=== PATIENT | male | born 1935 | race Caucasian/White ===

== ENCOUNTER 2017-10-09 09:37 | Emergency (ER) | payer MEDICARE ==
[2017-10-09 11:24] VITALS: BP 136/62
--- NOTE | 2017-10-09 12:07 | UC ---
Respiratory Complaint HPI - HPI Summary HPI Summary: 82 y/o male presents to the urgent care c/o nasal congestion w/ clear nasal discharge, +PND, dry cough, body aches and chill for the past 2 days. Unaware of fever. He has 3 episodes of diarrhea first day which resolved yesterday after taking Imodium PO. He feels a lot of pressure in both ears.Pt denies SOB, dizziness wheezing, chest pain, abdominal pain, N/V/D. Pt is eating well and drinking plenty of fluids - History of Current Complaint Chief Complaint: UCRespiratory Stated Complaint: CHEST CONGESTION/COUGH Time Seen by Provider: 10/09/17 11:46 Hx Obtained From: Patient Onset/Duration: Gradual Onset, Lasting Days - 2 days, Still Present Timing: Constant Severity Initially: Mild Severity Currently: Moderate Pain Intensity: 5 Pain Scale Used: 0-10 Numeric Character: Cough: Nonproductive Aggravating Factors: Recumbent Position Alleviating Factors: OTC Meds Associated Signs And Symptoms: Positive: Chills, URI, Nasal Congestion, Sinus Discomfort - Risk Factors Pulmonary Embolism Risk Factors: Negative Cardiac Risk Factors: Hypertension Pseudomonas Risk Factors: Negative Tuberculosis Risk Factors: Negative - Allergies/Home Medications Allergies/Adverse Reactions: Allergies Allergy/AdvReac Type Severity Reaction Status Date / Time MS Lisinopril [Lisinopril] Allergy Swelling Verified 10/09/17 11:24 Of Face,Lips,& Throat PMH/Surg Hx/FS Hx/Imm Hx Previously Healthy: Yes Cardiovascular History: Hypertension - Surgical History Surgical History: Yes Surgery Procedure, Year, and Place: achilles repair - Family History Known Family History: Positive: Unknown - Pt is adopted - Social History Occupation: Retired Lives: With Family Alcohol Use: Occasionally Substance Use Type: None Smoking Status (MU): Never Smoked Tobacco - Immunization History Most Recent Influenza Vaccination: Fall 2014 Most Recent Pneumonia Vaccination: has had Review of Systems Constitutional: Chills, Fatigue, Other - body aches Skin: Negative Eyes: Negative ENT: Sore Throat, Ear Ache - B/L ear pressure, Nasal Discharge, Sinus Congestion Respiratory: Cough - dry Cardiovascular: Negative Gastrointestinal: Negative, Diarrhea - 2 days ago with 3 episodes. Resolved today Genitourinary: Negative Motor: Negative Neurovascular: Negative Musculoskeletal: Negative Neurological: Negative Psychological: Negative Is Patient Immunocompromised?: No All Other Systems Reviewed And Are Negative: Yes Physical Exam Triage Information Reviewed: Yes Vital Signs: Initial Vital Signs Temp 99.1 F 10/09/17 11:20 Pulse 82 10/09/17 11:20 Resp 16 10/09/17 11:20 BP 136/62 10/09/17 11:20 Pulse Ox 97 10/09/17 11:20 - Additional Comments VITAL SIGNS: Reviewed. GENERAL: Patient is a well developed and nourished male who is sitting comfortable in the examining table. Patient is not in any acute respiratory distress. HEAD AND FACE: No signs of trauma. No ecchymosis, hematomas or skull depressions. No sinus tenderness. edematous erythematous nasal mucosa with yellowish discharge, EYES: PERRLA, EOMI x 2, No injected conjunctiva, clear watery eyes, no nystagmus. No photophobia. EARS: Hearing grossly intact. B/L Ear canals impacted w/ cerum unable to visualize TM. MOUTH: Positive pharynx with erythema, no exudates,no palatal petechiae. no B/L tonsillar enlargement Uvula in midline. NECK: Supple, trachea is midline, Positive anterior cervical lymphadenopathy, no JVD, no carotid bruit, no c-spine tenderness, neck with full ROM. No meningeal signs, no Kernig's or brudzinskis signs. CHEST: Symmetric, no tenderness at palpation LUNGS: Clear to auscultation bilaterally. No wheezing or crackles. CVS: Regular rate and rhythm, S1 and S2 present, no murmurs or gallops appreciated. ABDOMEN: Soft, non-tender. No signs of distention. No rebound no guarding, and no masses palpated. Bowel sounds are normal. EXTREMITIES: FROM in all major joints, no edema, no cyanosis or clubbing. NEURO: Alert and oriented x 3. No acute neurological deficits. Speech is normal and follows commands. SKIN: Dry and warm UC Diagnostic Evaluation - Laboratory O2 Sat by Pulse Oximetry: 97 Respiratory Course/Dx - Course Course Of Treatment: 82 y/o male presents to the urgent care c/o nasal congestion w/ clear nasal discharge, +PND, dry cough, body aches and chill for the past 2 days. Unaware of fever. He has 3 episodes of diarrhea first day which resolved yesterday after taking Imodium PO. He feels a lot of pressure in both ears.Pt denies SOB,dizziness, wheezing, chest pain, abdominal pain, N/V/ D. Pt is eating well and drinking plenty of fluids. Hx obtained. Pt with URI and B/L ear impacted w/ cerumen on examination. Most likely Influenza. However at this moment shortage of influenza test. Pt Rx Tamiflu and tylenol PO to alleviates symptoms. Ear irrigation ordered. Performed by nurse. Pt's B/L ear canals completely clear. Pt felt better. Advised on hand washing and wear a mask to avoid spreading. Pt advised to rest, increase fluid intake, eat well and avoid strenuous exercise. If symptoms do not improve or worsen advised to return to the urgent care or f/u with her PCP for further evaluation and treatment. Pt's BP is elevated today advised to decrease salt in diet, monitor BP and f/u with PCP for further management.Pt understood and agreed with plan of care. - Differential Dx/Diagnosis Differential Diagnosis/HQI/PQRI: Asthma, Bronchitis, Influenza, Lower Resp Infection, Sinusitis, Other - pahryngitis, cerumen impaction. otitis media or externa Provider Diagnoses: 1- B/L external ear canal cerumen Impaction. 2-Influenza Discharge - Discharge Plan Condition: Stable Disposition: HOME Prescriptions: Benzonatate CAP* [Tessalon 100 MG CAP*] 100 mg PO TID PRN #21 cap PRN Reason: Cough Oseltamivir CAP* [Tamiflu CAP*] 75 mg PO BID #10 cap Patient Education Materials: Cerumen Impaction (ED), Influenza (ED) Referrals: [facility] [place] [facility] [place]Outside] - 3 Days Additional Instructions: 1- Please take the full course of the antiviral to avoid resistance. Encourage hand washing and wear a mask to avoid spreading. 2-Please take taking Tylenol PO q6-8hrs prn as instructed after meals to alleviate fever, body aches and sore throat. Increase fluid intake, eat well, rest and avoid strenuous exercise 3-If symptoms do not improve or worsen please return to the urgent care or f/u with your PCP in 2 days for further evaluation and treatment.
== END 2017-10-09 12:54 | disposition home or self-care (01) ==
LOC: UCCORT 09:37
DX: J11.1 Influenza due to unidentified influenza virus with other respiratory manifestations (principal); H61.23 Impacted cerumen, bilateral; I10 Essential (primary) hypertension
CPT/HCPCS: 99213; G0463

== ENCOUNTER 2017-10-13 13:51 | Emergency (ER) | payer MEDICARE ==
[2017-10-13 15:57] VITALS: BP 131/68
--- NOTE | 2017-10-13 16:21 | UC ---
Respiratory Complaint HPI - HPI Summary HPI Summary: 82 y/o male presents to the urgent care for f/u on his influenza symptoms. Pt reports he was Dx w/ influenza on 10/09/2017 and Rx tamiflu PO and Tessalon tabs PO. His symptoms were improving, except for dry cough. Today he has nasal congestion w/ yellowish nasal discharge and B/L ear pressure. He has been coughing so much that his ribs hurt. He took last dose of Tamiflu today. He would like a Rx for the Tessalon tabs. Pt denies fever, SOB, chest pain, abdominal pain, SINGH, dizziness, N/V/D D - History of Current Complaint Chief Complaint: UCRespiratory Stated Complaint: FLU NOT IMPROVING Time Seen by Provider: 10/13/17 16:16 Hx Obtained From: Patient Onset/Duration: Gradual Onset, Lasting Days - 5 days, Still Present, Worse Since - yesterday Timing: Constant Severity Initially: Mild Severity Currently: Moderate Pain Intensity: 7 - from coughing Pain Scale Used: 0-10 Numeric Character: Cough: Nonproductive - dry Aggravating Factors: Recumbent Position Alleviating Factors: OTC Meds, Other - tessalon tabs Associated Signs And Symptoms: Positive: URI, Nasal Congestion, Sinus Discomfort - Risk Factors Pulmonary Embolism Risk Factors: Negative Cardiac Risk Factors: Negative Pseudomonas Risk Factors: Negative Tuberculosis Risk Factors: Negative - Allergies/Home Medications Allergies/Adverse Reactions: Allergies Allergy/AdvReac Type Severity Reaction Status Date / Time MS Lisinopril [Lisinopril] Allergy Swelling Verified 10/13/17 15:57 Of Face,Lips,& Throat PMH/Surg Hx/FS Hx/Imm Hx Previously Healthy: Yes Cardiovascular History: Hypertension - Surgical History Surgical History: Yes Surgery Procedure, Year, and Place: achilles repair - Family History Known Family History: Positive: Unknown - Pt is adopted - Social History Occupation: Retired Lives: With Family Alcohol Use: Occasionally Substance Use Type: None Smoking Status (MU): Never Smoked Tobacco - Immunization History Most Recent Influenza Vaccination: Fall 2014 Most Recent Pneumonia Vaccination: has had Review of Systems Constitutional: Negative Skin: Negative Eyes: Negative ENT: Nasal Discharge, Sinus Congestion, Sinus Pain/Tenderness Respiratory: Cough - dry Cardiovascular: Negative Gastrointestinal: Negative Genitourinary: Negative Motor: Negative Neurovascular: Negative Musculoskeletal: Negative Neurological: Headache Psychological: Negative Is Patient Immunocompromised?: No All Other Systems Reviewed And Are Negative: Yes Physical Exam Triage Information Reviewed: Yes Vital Signs: Initial Vital Signs Temp 98.7 F 10/13/17 15:53 Pulse 72 10/13/17 15:53 Resp 16 10/13/17 15:53 BP 131/68 10/13/17 15:53 Pulse Ox 98 10/13/17 15:53 - Additional Comments Vitals: reviewed General: Well developed, well-nourished male patient with NAD. Head and face: Normocephalic and atraumatic, Positive tenderness over the frontal and maxillary sinuses.. Eyes: PERRLA, EOMI x 2. Normal conjunctiva. No eye discharge. ENT: Ears and TM with normal limits. Nose: with yellowish discharge and erythematous mucosa. Pharynx with milderythema, no exudate. +yellowish PND Neck: Supple, no JVD, no carotid bruits and no lymphadenopathy. Lungs: clear, no rales, no rhonchi, no wheezes. CVS: RRR, S1 and S2 present no murmurs or gallops appreciated. Abdomen: soft nontender with positive bowel sounds. Extremities: no edema noted. Neuro: WNL. Skin: warm and dry UC Diagnostic Evaluation - Laboratory O2 Sat by Pulse Oximetry: 98 Respiratory Course/Dx - Course Course Of Treatment: 82 y/o male presents to the urgent care for f/u on his influenza symptoms. Pt reports he was Dx w/ influenza on 10/09/2017 and Rx tamiflu PO and Tessalon tabs PO. His symptoms were improving, except for dry cough. Today he has nasal congestion w/ yellowish nasal discharge and B/L ear pressure. He has been coughing so much that his ribs hurt. He took last dose of Tamiflu today. He would like a Rx for the Tessalon tabs. Pt denies fever, SOB, chest pain, abdominal pain, SINGH, dizziness, N/V/D. Hx obtained. Pt with 1 week of symptoms getting worse. Now turning into sinusitis. Pt advised to continue w / symptomatic Tx. However, PT Rx Augmentin PO and advised to sarts in 2-3 if not improvement of symptoms. Also Rx flonase nasal spray. Albuterol inhaler and Tessalon PO for cough. Discharge instructions explained to Pt. Advised to Return to the clinic or PCP if symptoms do not improve.Pt understood and agreed with plan of care. - Differential Dx/Diagnosis Differential Diagnosis/HQI/PQRI: Asthma, Bronchitis, Influenza, Lower Resp Infection, Sinusitis Provider Diagnoses: 1- Acute bacterial sinusitis Discharge - Discharge Plan Condition: Stable Disposition: HOME Prescriptions: Albuterol HFA INHALER* [Ventolin HFA Inhaler*] 1 - 2 puff INH Q6H PRN #1 mdi PRN Reason: Cough Amoxicillin/Clavulanate TAB* [Augmentin TAB 875*] 875 mg PO BID #20 tab Benzonatate CAP* [Tessalon 100 MG CAP*] 100 mg PO TID PRN #21 cap PRN Reason: Cough Fluticasone NASAL SPRAY 50MCG* [Flonase NASAL SPRAY 50MCG*] 2 spray BOTH NARES DAILY #1 btl Patient Education Materials: Sinusitis (ED) Referrals: [facility] [place] [facility] [Outside] - 3 Days Non Staff,Doctor [Primary Care Provider] - Additional Instructions: 1- Please increase fluid intake and rest. take full course of antibiotic to avoid resistance 2-Use Flonase as directed to help drain fluid. Also buy saline drops to clear sinuses 3-Take Tessalon PO to alleviates and albuterol inhaler to alleviate cough 4-Return to the clinic or PCP if symptoms do not improve for further management and treatment
== END 2017-10-13 16:50 | disposition home or self-care (01) ==
LOC: UCCORT 13:51
DX: J01.80 Other acute sinusitis (principal); B96.89 Other specified bacterial agents as the cause of diseases classified elsewhere
CPT/HCPCS: 99212; G0463

== ENCOUNTER 2019-10-14 11:07 | Emergency (ER) | payer MEDICARE ==
[2019-10-14 12:38] VITALS: BP 126/68
--- NOTE | 2019-10-14 12:52 | UC ---
Abdominal Pain Male HPI - HPI Summary HPI Summary: Pt presents reporting dysuria, frequency and pressure x 2 days. No penile discharge, testicular pain. No n/v/d No back pain. No rectal pain Pt states has been skiing - no trauma Pt with remote history of UTI -states feels similar. No analgesia taken No concern regarding bladder emptying medications as entered in EMR by skein bander reviewed this visit - History of Current Complaint Chief Complaint: UCGU Stated Complaint: URINARY COMPLAINT Time Seen by Provider: 10/14/19 12:48 Hx Obtained From: Patient Onset/Duration: Gradual Onset Severity Currently: None Pain Intensity: 0 - Allergies/Home Medications Allergies/Adverse Reactions: Allergies Allergy/AdvReac Type Severity Reaction Status Date / Time lisinopril Allergy Swelling Verified 10/14/19 12:33 Of Face,Lips,& Throat Home Medications: Home Medications amLODIPine TAB* [Norvasc 5 mg TAB*] 2.5 mg DAILY 10/14/19 [History Confirmed 02/25] PMH/Surg Hx/FS Hx/Imm Hx Previously Healthy: Yes Cardiovascular History: Hypertension - Surgical History Surgical History: Yes Surgery Procedure, Year, and Place: achilles repair - Family History Known Family History: Positive: Unknown - Pt is adopted, Non-Contributory - Social History Occupation: Retired Lives: With Family Alcohol Use: Weekly Alcohol Amount: weekends Substance Use Type: None Smoking Status (MU): Never Smoked Tobacco - Immunization History Most Recent Influenza Vaccination: Fall 2014 Most Recent Pneumonia Vaccination: has had Review of Systems All Other Systems Reviewed And Are Negative: Yes Constitutional: Positive: Negative Skin: Positive: Negative Eyes: Positive: Negative ENT: Positive: Negative Respiratory: Positive: Negative Cardiovascular: Positive: Negative Gastrointestinal: Negative: Abdominal Pain, Nausea Genitourinary: Positive: Dysuria, Frequency, Urgency. Negative: Vaginal/Penile Discharge, Vaginal/Penile Pain Motor: Positive: Negative Physical Exam - Summary Physical Exam Summary: Vital Signs Reviewed: Yes A+Ox3, no distress Eyes: Conjunctiva Clear, TOR. EOM intact and full ENT: Hearing grossly normal TM x 2 clear, mmoist, uvula midline, no exudate, no erythema Neck: Positive: Supple Respiratory: Positive: No respiratory distress, No accessory muscle use + CTA throughout no w/r Cardiovascular: RRR nl s1, s2 no m/r CBT <2 sec abd soft + BS nt/nd no guarding, no distension, CVA Musculoskeletal Exam: GARCIA x 4 without difficulty Strength Intact, ROM Intact Neurological: Positive: Alert, + sensation throughout Psychological: Positive: Normal Response To floor scraper Skin: Positive: no rash, no ecchymosis Triage Information Reviewed: Yes Vital Signs: Initial Vital Signs Temp 97.4 F 10/14/19 12:34 Pulse 70 10/14/19 12:34 Resp 16 10/14/19 12:34 BP 126/68 10/14/19 12:34 Pulse Ox 100 10/14/19 12:34 Abd Pain Male Course/Dx - Course Course Of Treatment: Pt with dysuria, frequency and urgency. no n/v, abd pain, back pain, no sense of retention VSS pt in no distress with noncoerning exam urine + leuk given sx will start abx hydrate strict return precaution - Differential Dx/Clinical Impression Provider Diagnosis: Dysuria Discharge ED - Sign-Out/Discharge Documenting (check all that apply): Patient Departure All imaging exams completed and their final reports reviewed: No Studies - Discharge Plan Condition: Stable Disposition: HOME Prescriptions: Amoxicillin/Clavulanate TAB* [Augmentin TAB 875*] 875 mg PO BID #14 tab Patient Education Materials: Urinary Tract Infection in Men (ED) Referrals: Non Staff,Doctor [Primary Care Provider] - (Dr. Richmond [place], [place] ) Additional Instructions: - stay well hydrated - drink plenty of non-alcoholic, non caffinated beverages - your urine will be further tested - if you require any changes to your treatment, we will contact you - this usually take 2 days - Contact your primary doctor to arrange a follow-up appointment next week. Contact your doctor or return with questions or concerns - Take your antibiotics exactly as prescribed until gone - Okay to alternate ibuprofen (Advil, Motrin) and Tylenol every 3 hours for pain. Take with food - Call your doctor or return with questions or concerns. If you develop fevers, vomiting, are unable to urinate, abdominal pain or other concerns it recommended you go to the emergency department for further evaluation and treatment - Billing Disposition and Condition Condition: STABLE Disposition: Home
--- NOTE | 2019-10-16 18:15 | UC ---
- Progress Note Progress Note: Patient called spoke with nursing. He was seen here in clinic on October 14, 2019 with some dysuria symptoms and he did have 2+ leukocytes in the urine. He was started on Augmentin. The urine culture came back as no growth of clinically significant organisms today. With the patient having diarrhea which potentially could be due to the Augmentin I recommend nursing call the patient and have him stop the Augmentin and have the patient reevaluated by his primary care doctor. If the patient's symptoms are worsening her he feels more ill he needs to get reevaluated in the emergency department. Course/Dx - Diagnoses Provider Diagnoses: Dysuria Discharge ED - Sign-Out/Discharge Documenting (check all that apply): Patient Departure All imaging exams completed and their final reports reviewed: No Studies - Discharge Plan Condition: Stable Disposition: HOME Prescriptions: Amoxicillin/Clavulanate TAB* [Augmentin TAB 875*] 875 mg PO BID #14 tab Patient Education Materials: Urinary Tract Infection in Men (ED) Referrals: Non Staff,Doctor [Primary Care Provider] - (Dr. Richmond [place], [place] ) Additional Instructions: - stay well hydrated - drink plenty of non-alcoholic, non caffinated beverages - your urine will be further tested - if you require any changes to your treatment, we will contact you - this usually take 2 days - Contact your primary doctor to arrange a follow-up appointment next week. Contact your doctor or return with questions or concerns - Take your antibiotics exactly as prescribed until gone - Okay to alternate ibuprofen (Advil, Motrin) and Tylenol every 3 hours for pain. Take with food - Call your doctor or return with questions or concerns. If you develop fevers, vomiting, are unable to urinate, abdominal pain or other concerns it recommended you go to the emergency department for further evaluation and treatment - Billing Disposition and Condition Condition: STABLE Disposition: Home
== END 2019-10-14 13:20 | disposition home or self-care (01) ==
LOC: UCCORT 11:07
DX: R30.0 Dysuria (principal); R35.0 Frequency of micturition; I10 Essential (primary) hypertension; R39.15 Urgency of urination; Z79.899 Other long term (current) drug therapy; Z88.8 Allergy status to other drugs, medicaments and biological substances
CPT/HCPCS: 81003; 87086; 99212; G0463